=== PATIENT | male | born 1970 | race Caucasian/White ===

== ENCOUNTER 2018-11-28 04:43 | Emergency (ER) | payer OTHER ==
[~2018-11-28] VITALS: Ht 185.4 cm; Wt 111.1 kg
[2018-11-28 04:43] VITALS: BP 174/93
--- NOTE | 2018-11-28 04:43 | NUR ---
Arrival: 48 year old male ambulates into ER with Mother c/o vomiting and dizzy
[2018-11-28 05:16] LABS: BASOPHIL % 0.4 % (0.0-0.2); EOSINOPHIL # 0.1 10^3/uL (0.0-0.2); HEMOGLOBIN 14.7 g/dL (13.9-16.3); LYMPHOCYTES # 2.4 10^3/uL (1.0-4.8); LYMPHOCYTES % 53.8 % (24.0-44.0); MEAN CELL HGB 31.9 pg (26-34); MEAN CELL HGB CONCENTRATION 34.6 g/dL (33-37); MEAN CORP VOLUME 92.2 fL (78-100); MEAN PLATELET VOLUME 9.3 fL (7.8-11.0); MONOCYTES # 0.4 10^3/uL (0.3-0.8); MONOCYTES % 8.6 % (5.0-12.0); NEUTROPHIL # 1.6 10^3/uL (1.8-7.7); RED CELL DISTRIBUTION WIDTH 13.1 % (11.5-14.5); WHITE BLOOD CELL 4.5 10^3/uL (4.5-11.0)
[2018-11-28 05:36] LABS: ALANINE AMINOTRANSFERASE(ML) 39 U/L (12-78); ALKALINE PHOSPHATASE 93 U/L (50-136); ASPARTATE AMINO TRANSFERASE 19 U/L (0-35); CALCIUM 8.8 mg/dL (8.4-10.5); GLUCOSE 170 mg/dL (70-110)
[2018-11-28 06:32] VITALS: BP 174/93
--- NOTE | 2018-11-28 06:33 | ER.PDOC ---
General Chief Complaint: Nausea,Vomiting,Diarrhea Stated Complaint: VOMITING Time seen by MD: 05:00 Source: patient Exam Limitations: no limitations History of Present Illness Initial Comments Nausea/vomiting, vomited once. Severity/Quality: mild Associated Symptoms (vomiting): mild vomiting Vital Signs First Vital Signs Date Time Temp Pulse Resp B/P (MAP) Pulse Ox O2 Delivery O2 Flow Rate FiO2 11/28/18 04:43 97.8 91 16 Room Air Last Vital Signs Date Time Temp Pulse Resp B/P (MAP) Pulse Ox O2 Delivery O2 Flow Rate FiO2 11/28/18 04:43 97.8 91 16 Room Air Past Medical History Medical History: no pertinent history Surgical History: no surgical history Social History Smoking: non-smoker Alcohol Use: occassionally Drug Use: none Constitutional: no symptoms reported Respiratory: no symptoms reported Cardiovascular: no symptoms reported Gastrointestinal: see HPI Genitourinary: no symptoms reported All Other Systems: Reviewed and Negative Physical Exam General Appearance: No Apparent Distress, WD/WN Neck: Non-Tender, Full Range of Motion, Supple, Normal Inspection Respiratory: chest non-tender, lungs clear, normal breath sounds, no respiratory distress, no accessory muscle use Cardiovascular: Normal Peripheral Pulses, Regular Rate, Rhythm, No Edema, No Gallop, No JVD, No Murmur Gastrointestinal: Normal Bowel Sounds, Non Tender, Soft Back: Normal Inspection, No CVA Tenderness, No Vertebral Tenderness Extremities: Normal Range of Motion, Non-Tender, Normal Inspection, No Pedal Edema, No Calf Tenderness, Normal Capillary Refill, Pelvis Stable Neurologic/Psychiatric: front office agent II-XII NML as Tested, No Motor/Sensory Deficits, Alert, Normal Mood/Affect, Oriented x 3 Skin: Normal Color, Warm/Dry Results/Orders Results/Orders Orders - GAEL JALLOH MD Cbc With Auto Diff (11/28/18 05:02) Comprehensive Metabolic Panel (11/28/18 05:02) Troponin I (11/28/18 05:02) Ekg-Routine (11/28/18 05:02) Lipase (11/28/18 05:02) Vital Signs Date Time Temp Pulse Resp B/P (MAP) Pulse Ox O2 Delivery O2 Flow Rate FiO2 11/28/18 04:43 97.8 91 16 Room Air Laboratory Tests Test 11/28/18 05:12 White Blood Count 4.5 10^3/uL (4.5-11.0) Red Blood Count 4.61 10^6/uL (4.50-5.90) Hemoglobin 14.7 g/dL (13.9-16.3) Hematocrit 42.5 % (37.0-53.0) Mean Corpuscular Volume 92.2 fL (78-100) Mean Corpuscular Hemoglobin 31.9 pg (26-34) Mean Corpuscular Hemoglobin Concent 34.6 g/dL (33-37) Red Cell Distribution Width 13.1 % (11.5-14.5) Platelet Count 201 10^3/uL (150-400) Mean Platelet Volume 9.3 fL (7.8-11.0) Neutrophils (%) (Auto) 35.0 % (41.0-85.0) L Lymphocytes (%) (Auto) 53.8 % (24.0-44.0) H Monocytes (%) (Auto) 8.6 % (5.0-12.0) Neutrophils # (Auto) 1.6 10^3/uL (1.8-7.7) L Lymphocytes # (Auto) 2.4 10^3/uL (1.0-4.8) Monocytes # (Auto) 0.4 10^3/uL (0.3-0.8) Absolute Immature Granulocyte (auto 0.01 10^3 u/L (0-2) Immature Granulocytes % 0.20 % (0.00-0.50) Eosinophils % 2.0 % (0.0-5.0) Basophils % 0.4 % (0.0-0.2) H Basophils # 0.0 10^3/uL (0.0-0.1) Eosinophil Count 0.1 10^3/uL (0.0-0.2) Sodium Level 145 mmol/L (132-145) Potassium Level 3.6 mmol/L (3.6-5.2) Chloride Level 108.0 mmol/L (96-109) Carbon Dioxide Level 26.0 mmol/L (20.0-32) Anion Gap 14.6 Blood Urea Nitrogen 10 mg/dL (7-18) Creatinine 1.34 mg/dL (0.59-1.40) Estimated GFR () 68.6 (>/=60) BUN/Creatinine Ratio 7.0 Glucose Level 170 mg/dL (70-110) H Calcium Level 8.8 mg/dL (8.4-10.5) Total Bilirubin 0.4 mg/dL (0.2-1.0) Aspartate Amino Transferase (AST) 19 U/L (0-35) Alanine Aminotransferase (ALT) 39 U/L (12-78) Alkaline Phosphatase 93 U/L (50-136) Troponin I < 0.02 ng/mL (0.00-0.05) Total Protein 7.0 g/dL (6.4-8.2) Albumin 4.1 g/dL (3.4-5.0) Globulin 2.9 Lipase 111 U/L (114-286) L Departure Time of Disposition: 06:32 Disposition: 01 HOME, SELF-CARE Impression: Primary Impression: Nausea & vomiting Additional Impression: Blood glucose elevated Condition: Improved Referrals: PCP,UNKNOWN (PCP) PRIMARY CARE PROVIDER Additional Instructions: F/U with your PCP in 1-2 days Duration or Time Spent with Pa: 45 mins Problem Qualifiers Primary Impression: Nausea & vomiting Vomiting type: unspecified Vomiting Intractability: non-intractable Qualified Codes: R11.2 - Nausea with vomiting, unspecified GAEL JALLOH MD Nov 28, 2018 06:33
[2018-11-28 06:40] VITALS: BP 149/93
[2018-11-28 06:42] VITALS: BP 149/93
--- NOTE | 2018-11-28 21:25 | PCM.EKG ---
[facility] Test Date: 2018-11-28 Test Time: 06:24:19 Pat Name: RADHA DUFFY Department: Room: Gender: M Appeals Reviewer Veteran: [place] : 1970 Requested By: GAEL JALLOH Order Number: [id number] Reading MD: Gael JALLOH Measurements Intervals [place] Rate: 75 P: 34 IA: 176 QRS: 12 QRSD: 88 T: 23 QT: 370 QTc: 413 Interpretive Statements Normal sinus rhythm with sinus arrhythmia Normal ECG No previous ECG available for comparison Electronically Signed On 12-01-2018 0:28:36 CDT by Gael JALLOH Please click the below link to view image of tracing.
== END 2018-11-28 06:51 | disposition home or self-care (01) ==
LOC: ER 04:43
DX: R11.2 Nausea with vomiting, unspecified (principal); R73.9 Hyperglycemia, unspecified
CPT/HCPCS: 36415; 80053; 83690; 84484; 85025; 93005; 99285